=== PATIENT | female | born 1955 | race Caucasian/White ===

== ENCOUNTER 2018-03-15 15:07 | Outpatient (CLI) | payer OTHER | END 2018-03-15 15:08 | disposition home or self-care (01) | LOC: LABBT 15:07 | PROVIDERS: ATTEND Surgery | DX: Z01.818 Encounter for other preprocedural examination (principal); K64.8 Other hemorrhoids | CPT/HCPCS: 93005; 93010 ==

== ENCOUNTER 2018-03-23 09:37 | Day surgery (SDC) | payer OTHER ==
[2018-03-15 15:35] VITALS: BMI 26.4
[2018-03-23] MEDS ORDERED: cefOXitin 2 GM VIAL ONE (10:06)
[2018-03-23] MEDS ORDERED: Sodium Chloride 0.9% 100 ML ONE (10:07)
[2018-03-23] MEDS ORDERED: Ondansetron HCl/PF 4 MG/2 ML Vial ONE (10:36)
[2018-03-23] MEDS ORDERED: PROPOFOL 200 MG/20 ML VIAL ONE (10:36)
[2018-03-23] MEDS ORDERED: Glycopyrrolate 0.2 MG/ML 5 ML SYRINGE ONE (10:36)
[2018-03-23] MEDS ORDERED: Lidocaine 1% PF 5 ML VIAL ONE (10:36)
[2018-03-23] MEDS ORDERED: Dexamethasone 20 MG/5 ML VIAL ONE (10:36)
[2018-03-23] MEDS ORDERED: Fentanyl 250 MCG/5 ML VIAL ONE (11:39)
[2018-03-23] MEDS ORDERED: Bupivacaine/Epinephrine 0.25% 30 ML VIAL ONE (11:51)
[2018-03-23] MEDS ORDERED: Lidocaine 2% Jelly 5 ML TUBE ONE (11:51)
[2018-03-23] MEDS ORDERED: Morphine 4 MG/ML VIAL ONE (14:06)
--- NOTE | 2018-03-23 21:29 | OP ---
DATE OF PROCEDURE: 03/23/2018 PREOPERATIVE DIAGNOSIS: Internal and external hemorrhoid x2. POSTOPERATIVE DIAGNOSIS: Internal and external hemorrhoid x2. PROCEDURE: Internal and external hemorrhoidectomy with LigaSure. SURGEON: Damon Franco M.D. ANESTHESIA: General. ESTIMATED BLOOD LOSS: Minimal. COMPLICATIONS: None. SPECIMEN: Hemorrhoids. TECHNIQUE: The patient was taken to the operating room and placed supine on the table. After genera l anesthetic was obtained, she was placed in the lithotomy position. Her perineum was prepped and dr aped in a sterile fashion. She had left and right posterolateral hemorrhoids thus the mucosa was inc ised using cautery. The hemorrhoid was removed using LigaSure. Care was taken to avoid damage to th e sphincter muscle. No additional sutures were placed. There was no bleeding. Gelfoam and lidocain e jelly was packed in the anal canal. There was no anal canal mass. There was good sphincter tone. The patient was en route to recovery in stable condition. All instrument counts, needle counts, and lap counts were correct.
== END 2018-03-23 14:45 | disposition home or self-care (01) ==
LOC: SDC 09:37
PROVIDERS: ATTEND Surgery
PROC: 06LY3CC Occlusion of Hemorrhoidal Plexus with Extraluminal Device, Percutaneous Approach (ICD-10-PCS; principal; 2018-03-23)
DX: K64.4 Residual hemorrhoidal skin tags (principal); K64.8 Other hemorrhoids; Z79.82 Long term (current) use of aspirin; Z79.899 Other long term (current) drug therapy; Z88.2 Allergy status to sulfonamides; Z88.6 Allergy status to analgesic agent; Z88.8 Allergy status to other drugs, medicaments and biological substances
CPT/HCPCS: 88304; J0694; J1100; J2001; J2270; J2405; J2704; J3010; J7050

== ENCOUNTER 2019-08-29 06:33 | Outpatient (CLI) | payer OTHER, MEDICARE ==
[2019-08-29 13:48] LABS: #Basophils 0.1 thou/uL (0.0-0.2); #Eosinphils 0.2 thou/uL (0.0-0.7); #Lymphocytes 2.9 thou/uL (1.20-3.40); #Monocytes 0.6 thou/uL (0.11-0.59); #Neutrophils 5.5 thou/uL (1.40-6.50); %Basophils 0.6 % (0.0-1.0); %Eosinophils 2.1 % (0.0-10.0); %Lymphocytes 30.9 % (21.0-51.0); %Monocytes 6.8 % (0.0-10.0); %Neutrophils 59.5 % (42.0-75.0); Hemoglobin 13.9 g/dL (12.0-16.0); Mean Corpuscular Hemoglobin 28.2 pg (27.0-31.0); Mean Corpuscular Volume 88.2 fL (78.0-98.0); Mean Platelet Volume 7.2 fL (7.4-10.4); Platelet Count 288 thou/uL (130-400); RBC Distribution Width 12.7 % (11.5-14.5); Red Blood Cell (RBC) Count 4.92 mill/uL (4.20-5.40); White Blood Cell (WBC) Count 9.3 thou/uL (4.8-10.8)
[2019-08-29 13:52] LABS: INR-International Normal Ratio 0.9; Prothrombin Time 11.7 SEC (12.0-14.7)
[2019-08-29 14:06] LABS: Bilirubin Negative (Negative); Blood, Urine Negative (Negative); Clarity Clear (Clear); Glucose, Urine (Dipstick) Normal (Negative); Leukocyte Negative Leu/uL (Negative); Nitrite Negative (Negative); Protein, Urine (Dipstick) Negative (Neg-Trace); RBC/HPF 0-3 HPF (0-3); Squamous Epithelial None Seen HPF (0-3); Urobilinogen Normal mg/dL (Less than 2); WBC/HPF 0-3 HPF (0-3)
[2019-08-29 14:08] LABS: Bacteria/HPF 1+ HPF (None Seen)
[2019-08-29 14:17] LABS: Anion Gap 11 mmol/L (10-20); BUN (Urea Nitrogen) 16 mg/dL (9.8-20.1); Calc. Creatinine Clearance 0 mL/min (70-130); Calcium 9.9 mg/dL (7.8-10.44); Carbon Dioxide 28 mmol/L (23-31); Chloride 104 mmol/L (98-107); Estimated GFR-MDRD 87; Glucose 84 mg/dL (80-115); Potassium 3.8 mmol/L (3.5-5.1); Sodium 139 mmol/L (136-145)
--- NOTE | 2019-08-30 17:57 | EKG ---
Test Reason : Blood Pressure : / mmHG Vent. Rate : 072 BPM Atrial Rate : 072 BPM P-R Int : 156 ms QRS Dur : 088 ms QT Int : 380 ms P-R-T Axes : 062 051 032 degrees QTc Int : 416 ms Normal sinus rhythm Low voltage QRS Cannot rule out Anterior infarct (cited on or before 15-MAR-2018) Abnormal ECG When compared with ECG of 15-MAR-2018 16:10, No significant change was found Confirmed by Angela MEDINA ([id number]) on 08/30/2019 5:56:36 PM Referred By: NAZANIN Confirmed By:Angela MEDINA
== END 2019-08-29 06:34 | disposition home or self-care (01) ==
LOC: LABBT 06:33
PROVIDERS: ATTEND Orthopaedic Surgery
DX: Z01.818 Encounter for other preprocedural examination (principal); M17.12 Unilateral primary osteoarthritis, left knee
CPT/HCPCS: 80048; 81001; 85025; 85610; 93005; 93010

== ENCOUNTER 2019-08-29 13:15 | Inpatient (IN) | payer OTHER, MEDICARE ==
[2019-08-29 11:58] VITALS: BMI 29.2
[2019-09-02] MEDS ORDERED: Fentanyl 100 MCG/2 ML VIAL ONE ×4 (05:50→10:28)
[2019-09-02] MEDS ORDERED: Sodium Chloride 0.9% 100 ML ONE (05:54)
[2019-09-02] MEDS ORDERED: Tranexamic Acid 1,000 MG/10 ML VIAL ONE ×2 (05:54→09:25)
[2019-09-02] MEDS ORDERED: Midazolam HCl 2 mg/2 ml Vial ONE (06:21)
[2019-09-02] MEDS ORDERED: Bupivacaine PF 0.5% 30 ML VIAL ONE (06:28)
[2019-09-02] MEDS ORDERED: Acetaminophen 325 MG TAB PO PRN (07:31)
[2019-09-02] MEDS ORDERED: Zolpidem Tartrate 5 MG TAB PO PRN ×2 (07:31→08:12)
[2019-09-02] MEDS ORDERED: diphenhydrAMINE 25 MG CAP PO PRN (07:31)
[2019-09-02] MEDS ORDERED: HYDROcodone/Acetaminophen 10/325 mg Tablet PO PRN ×4 (07:31→08:12)
[2019-09-02] MEDS ORDERED: Ondansetron PF 4 MG/2 ML Vial IVP PRN ×2 (07:31→08:12)
[2019-09-02] MEDS ORDERED: Promethazine HCl 25 MG/ML VIAL IM PRN ×3 (07:31→08:12)
[2019-09-02] MEDS ORDERED: Tranexamic Acid 1,000 MG in Sodium Chloride 0.9% 100 ML IVPB SCH (07:45)
[2019-09-02] MEDS ORDERED: Vancomycin HCl 1 GM in Premix Bag 1 BAG IVPB SCH (07:45)
--- NOTE | 2019-09-02 08:00 | RAD ---
XR Knee Lt 2 View: 09/02/2019 5:55 AM CLINICAL INDICATION: Preoperative left knee radiograph COMPARISON: None. FINDINGS: Bones: No acute fracture is demonstrated. Joints: Severe osteoarthrosis of the left knee with mild varus malalignment. There is postprocedural change of an ACL reconstruction.. Soft Tissue: No acute abnormality.. IMPRESSION: Severe left knee osteoarthrosis. Postprocedural change of a prior ACL reconstruction. No acute fractu re or subluxation demonstrated.
[2019-09-02] MEDS ORDERED: Promethazine HCl 25 MG/ML VIAL SLOW IVP PRN (08:10)
[2019-09-02] MEDS ORDERED: Ondansetron HCl/PF 4 MG/2 ML Vial IVP PRN (08:10)
[2019-09-02] MEDS ORDERED: traMADol HCl 50 MG TAB PO PRN (08:12)
[2019-09-02] MEDS ORDERED: Ropivacaine HCl/PF 250 ML in Premix Bag 1 BAG NERVE BLCK SCH (08:12)
[2019-09-02] MEDS ORDERED: Fentanyl 100 MCG/2 ML VIAL SLOW IVP PRN (08:13)
[2019-09-02] MEDS ORDERED: Ketorolac Tromethamine 30 MG/ML VIAL ONE (09:50)
[2019-09-02] MEDS ORDERED: Ropivacaine 0.5% HCl/PF (150 MG/30 ML VIAL) ONE (10:45)
[2019-09-02] MEDS ORDERED: ePHEDrine/0.9% NaCl/PF SYRINGE 50 mg/10 ml ONE (10:45)
[2019-09-02] MEDS ORDERED: Dexamethasone 20 MG/5 ML VIAL ONE (10:45)
[2019-09-02] MEDS ORDERED: Ropivacaine 0.2% HCl/PF (40 MG/20 ML VIAL) ONE (10:45)
[2019-09-02] MEDS ORDERED: PROPOFOL 200 MG/20 ML VIAL ONE (10:45)
[2019-09-02] MEDS ORDERED: Ondansetron PF 4 MG/2 ML Vial ONE (10:45)
[2019-09-02] MEDS: Ketorolac Tromethamine 30 MG/ML VIAL IVP SCH ×3 (12:38→23:13)
[2019-09-02] MEDS: Sodium Chloride 0.9% 1,000 ML IV SCH ×2 (12:45→17:17)
[2019-09-02] MEDS: Aspirin 81 mg Enteric Coated Tablet PO SCH ×2 (12:50→19:55)
[2019-09-02] MEDS: Montelukast Sodium 10 mg Tablet PO SCH (12:50)
[2019-09-02] MEDS: Multivitamin W/ Minerals 1 TAB PO SCH (12:50)
[2019-09-02] MEDS: Senokot S 8.6-50 MG TAB PO SCH ×2 (12:50→19:55)
[2019-09-02] MEDS: Ferrous Gluconate 324 MG TAB PO SCH ×2 (12:50→19:55)
[2019-09-02] MEDS: Oxybutynin 5 MG TAB PO SCH (12:50)
[2019-09-02] MEDS: CEFAZOLIN 2 GM in Premix Bag 1 BAG IVPB SCH ×2 (14:40→21:10)
--- NOTE | 2019-09-02 14:46 | OP ---
DATE OF PROCEDURE: 09/02/2019 PREOPERATIVE DIAGNOSIS: Left knee osteoarthrosis, status post previous anterior cruciate ligament reconstruction. POSTOPERATIVE DIAGNOSIS: Left knee osteoarthrosis, status post previous anterior cruciate ligament reconstruction. PROCEDURES PERFORMED: 1. Left total knee replacement using [place] pinless navigation. 2. Hardware removal, left leg. FIRE OFFICIAL: Addi Salinas PA-C. COMPLICATIONS: None. ESTIMATED BLOOD LOSS: Minimal. ANESTHESIA: The patient had a general anesthetic as well as a preoperative block. IMPLANTS: To the left knee; we did place a Sylvia Triathlon total knee system , the femur with size 3 cruciate-retaining femur. We used a size 2 primary tibial baseplate. We used a 2 x 9 mm CS X3 tibial bearing and a symmetric 27 x 8 X3 patella. DISPOSITION: She did go to recovery room in stable condition. INDICATIONS: This 63-year-old female comes in for left knee replacement after failing nonoperative treatment. In the past, she had an ACL reconstruction performed and she had some hardware that has been bothering her on her astorga and she wishes for that also to be removed. PROCEDURE IN DETAIL: After all appropriate consent forms were explained and signed, the patient was taken back to the operating room and at this time was given general anesthetic. Once the level of anesthesia was appropriate, a well-padded tourniquet was placed on the left leg, and the leg was then prepped and draped in standard surgical fashion. The limb was exsanguinated and tourniquet taken up to 300 mmHg. Midline incision was made with a 10 blade down through the skin and subcutaneous tissue. Bovie electrocautery was used to coagulate any brisk venous bleeding. A new blade was used to make a medial parapatellar arthrotomy. Small subperiosteal release was performed medially and excess fat pad was removed. The knee was flexed up to gain access to the femur. The femur was navigated and distal femoral resection was made. Epicondylar access was used to align our sizing jig and this was pinned in place. We sized our femur to be a size 3 cruciate-retaining femur. 4:1 cutting block was applied and pinned. Anterior and posterior chamfer cuts were then made. We navigated out our proximal tibia and made our proximal tibial resection. Spreaders were used to remove any posterior osteophytes off the back of the femur as well as remaining meniscal tissue. A long alignment susan was then used to achieve correct rotation of our tibial baseplate and we used a size 2 primary tibial baseplate was chosen. This was pinned in place. We trialed the polyethylene and we used a 2 x 9 mm CS X3 tibial bearing polyethylene gave us full extension and good stability throughout range of motion. Two towel clips and a saw were used to cut our patella. Three lug nuts were drilled and a symmetric 27 x 8 X3 patella was trialed which sat nicely in the trochlear groove. We then drilled our femur and punched our tibia. All components were removed. The knee was thoroughly irrigated and dried. Cement was mixed into the cement gun on the back table. Components were then placed. The knee was held out in full extension until the cement had dried. All excess bone cement was removed. Multiple #2 Vicryl stitches as well as a Quill were used to close our extensor mechanism. 0 Quill followed by a running Monoderm was then used to close the skin. Surgicel glue was then used on the skin. Once this had dried, soft tissue dressing was applied to the limb, tourniquet was let down, and the toes pinked up nicely. The patient was then awakened and taken to the recovery room in stable condition. All counts were correct at the end of the case. The patient did receive preoperative IV antibiotics. The patient was injected with Marcaine for postoperative pain relief. As we were doing our approach, the tibial incision was taken down a little bit more distal than normal to gain access to the tibial hardware. This was easily found and the Ethibond sutures and tibial screw were removed without any complication. From this point on, we went onto perform a standard knee replacement. Job ID: [id number] [facility]
[2019-09-02] MEDS: Acetaminophen 325 MG TAB PO PRN (19:40)
[2019-09-02] MEDS: Loratadine 10 MG TAB PO SCH (19:55)
[2019-09-02] MEDS: traMADol HCl 50 MG TAB PO PRN (21:14)
[2019-09-03] MEDS: traMADol HCl 50 MG TAB PO PRN ×3 (03:26→18:34)
[2019-09-03] MEDS: Sodium Chloride 0.9% 1,000 ML IV SCH ×3 (03:30→23:59)
[2019-09-03] MEDS: Ketorolac Tromethamine 30 MG/ML VIAL IVP SCH ×3 (05:30→17:46)
[2019-09-03 05:45] LABS: Hemoglobin 10.6 g/dL (12.0-16.0); Mean Corpuscular HGB CONC 33.4 g/dL (32.0-36.0); Mean Corpuscular Hemoglobin 29.1 pg (27.0-31.0); Mean Corpuscular Volume 87.2 fL (78.0-98.0); Platelet Count 233 thou/uL (130-400); RBC Distribution Width 12.7 % (11.5-14.5); Red Blood Cell (RBC) Count 3.64 mill/uL (4.20-5.40); White Blood Cell (WBC) Count 11.4 thou/uL (4.8-10.8)
--- NOTE | 2019-09-03 07:06 | PDOC.HOSPP ---
- Subjective Encounter Date: 09/02/19 Encounter Time: 18:30 Subjective: Patient seen and examined for med mngt. No CP or SOB. Pain controlled. No new complaints. - Objective Vital Signs & Weight: Vital Signs (12 hours) Temp Pulse Resp BP Pulse Ox 09/03/19 03:14 98.7 F 77 16 123/72 96 09/02/19 23:16 98.3 F 69 16 118/70 95 09/02/19 20:25 95 09/02/19 19:44 98.7 F 91 16 130/68 95 Weight Weight 150 lb I&O: 09/02/19 09/03/19 09/04/19 06:59 06:59 06:59 Intake Total 1100 Output Total 2800 Balance -1700 Result Diagrams: 09/03/19 05:11 Additional Labs: Laboratory Tests 04/05/19 08/29/19 11:05 13:10 Creatinine 0.68 Cholesterol 246 H LDL Cholesterol, Calc 161 HDL Cholesterol 75 EKG Reviewed by me: Yes (SR) Hospitalist ROS - Review of Systems Cardiovascular: denies: chest pain, palpitations, orthopnea, paroxysmal noc. dyspnea, edema, light headedness, other Gastrointestinal: denies: nausea, vomiting, abdominal pain, diarrhea, constipation, melena, hematochezia, other - Medication Medications: Active Medications Generic Name Dose Route Start Last Admin Trade Name Freq PRN Reason Stop Dose Admin Acetaminophen 650 mg 09/02/19 08:14 09/02/19 19:40 Tylenol PO 650 mg Q6H PRN Administration Headache/Fever or Pain Aspirin 81 mg 09/02/19 09:00 09/02/19 19:55 Ecotrin PO 81 mg BID NURIA Administration Ferrous Gluconate 324 mg 09/02/19 09:00 09/02/19 19:55 Fergon PO 324 mg BID NURIA Administration Sodium Chloride 1,000 mls @ 100 mls/hr 09/02/19 07:45 09/03/19 03:30 Normal Saline 0.9% IV Not Given .Q10H NURIA Iron/Minerals/Multivitamins 1 tab 09/02/19 09:00 09/02/19 12:50 Theragran M PO Not Given DAILY NURIA Ketorolac Tromethamine 30 mg 09/02/19 12:00 09/03/19 05:30 Toradol IVP 09/04/19 06:01 30 mg Q6HR NURIA Administration Loratadine 10 mg 09/02/19 21:00 09/02/19 19:55 Claritin PO 10 mg HS NURIA Administration Montelukast Sodium 10 mg 09/02/19 09:00 09/02/19 12:50 Singulair PO Not Given QAM NURIA Oxybutynin Chloride 5 mg 09/02/19 09:00 09/02/19 12:50 Ditropan PO Not Given QAM NURIA Senna/Docusate Sodium 2 tab 09/02/19 09:00 09/02/19 19:55 Senokot S PO 2 tab BID NURIA Administration Tramadol HCl 100 mg 09/02/19 07:31 09/03/19 03:26 Ultram PO 100 mg Q6H PRN Administration Moderate Pain (4-6) Tramadol HCl 50 mg 09/02/19 08:12 09/02/19 15:34 Ultram PO 50 mg Q6H PRN Administration Mild Pain (1-3) - Exam General Appearance: NAD Heart: RRR, no gallops Respiratory: CTAB, no rales Gastrointestinal: soft, non-distended Extremities: no edema Hosp A/P - Plan DVT proph w/SCDs HTN HLD Hypothyroidism GERD CKD 2 PLAN: Cont Amlodipine Cont Levothyroxine Cont PPI Cont supportive care/PT DVT prophylaxis Full code. DPOA - spouse
[2019-09-03] MEDS ORDERED: Polyethylene Glycol 3350 17 GM Packet PO PRN (07:17)
[2019-09-03] MEDS: Senokot S 8.6-50 MG TAB PO SCH ×2 (08:29→19:46)
[2019-09-03] MEDS: Acetaminophen 325 MG TAB PO PRN (08:29)
[2019-09-03] MEDS: Aspirin 81 mg Enteric Coated Tablet PO SCH ×2 (08:29→19:46)
[2019-09-03] MEDS: Ferrous Gluconate 324 MG TAB PO SCH ×2 (08:30→19:46)
[2019-09-03] MEDS: Multivitamin W/ Minerals 1 TAB PO SCH (08:30)
[2019-09-03] MEDS: Montelukast Sodium 10 mg Tablet PO SCH (08:30)
[2019-09-03] MEDS: Oxybutynin 5 MG TAB PO SCH (08:30)
[2019-09-03] MEDS: Amlodipine 5 MG TAB PO SCH (08:30)
[2019-09-03] MEDS ORDERED: Prevnar 13-Val Conj/PF 0.5 ML SYRINGE IM ONE (13:15)
[2019-09-03] MEDS ORDERED: FLU VACC TS2019-20(65YR UP)/PF 180 MCG/0.5 ML SYRINGE IM ONE (13:15)
[2019-09-03] MEDS: Loratadine 10 MG TAB PO SCH (19:46)
[2019-09-04] MEDS: traMADol HCl 50 MG TAB PO PRN ×2 (03:43→10:46)
[2019-09-04] MEDS: Ketorolac Tromethamine 30 MG/ML VIAL IVP SCH ×2 (05:53)
[2019-09-04] MEDS ORDERED: Levothyroxine 150 MCG TAB PO SCH (06:00)
[2019-09-04 06:04] LABS: Hemoglobin 10.3 g/dL (12.0-16.0); Mean Corpuscular HGB CONC 33.6 g/dL (32.0-36.0); Mean Corpuscular Hemoglobin 29.4 pg (27.0-31.0); Mean Corpuscular Volume 87.5 fL (78.0-98.0); Mean Platelet Volume 6.9 fL (7.4-10.4); Platelet Count 227 thou/uL (130-400); RBC Distribution Width 12.8 % (11.5-14.5); Red Blood Cell (RBC) Count 3.51 mill/uL (4.20-5.40); White Blood Cell (WBC) Count 11.2 thou/uL (4.8-10.8)
--- NOTE | 2019-09-04 08:23 | PRG ---
DATE OF SERVICE: 09/04/2019 SUBJECTIVE: Rosmery is a 63-year-old female postop day 2 from left total knee arthroplasty. Pain is relatively well controlled. She otherwise has no complaints. OBJECTIVE: VITAL SIGNS: Temperature 98.7, pulse 85, respiratory rate 18, and blood pressure 153/82. NEUROLOGIC: She is alert and oriented to person, place, time, and situation, responsive and appropriate with the examiner. Grossly nonfocal and neurovascularly intact in both lower extremities. LABORATORY DATA: Hemoglobin and hematocrit are 10.3 and 30.7. IMPRESSION: A 63-year-old female postop day 2, left total knee arthroplasty, doing well. PLAN: Continue current care. Probable discharge home today. Job ID: [id number]
[2019-09-04] MEDS: Aspirin 81 mg Enteric Coated Tablet PO SCH (08:26)
[2019-09-04] MEDS: Montelukast Sodium 10 mg Tablet PO SCH (08:26)
[2019-09-04] MEDS: Ferrous Gluconate 324 MG TAB PO SCH (08:26)
[2019-09-04] MEDS: Oxybutynin 5 MG TAB PO SCH (08:26)
[2019-09-04] MEDS: Amlodipine 5 MG TAB PO SCH (08:27)
[2019-09-04] MEDS: Senokot S 8.6-50 MG TAB PO SCH (08:27)
[2019-09-04] MEDS: Multivitamin W/ Minerals 1 TAB PO SCH (08:27)
[2019-09-04] MEDS: Sodium Chloride 0.9% 1,000 ML IV SCH (08:38)
[2019-09-04 11:05] VITALS: BP 149/82; TEMP 98.3
== END 2019-09-04 14:48 | disposition home or self-care (01) | DRG 470 ==
LOC: SURG A 09-02 05:25 → SJJU 09-02 11:59
PROVIDERS: ADMIT Orthopaedic Surgery; ATTEND Orthopaedic Surgery
PROC: 0SRD0J9 Replacement of Left Knee Joint with Synthetic Substitute, Cemented, Open Approach (ICD-10-PCS; principal; 2019-09-02)
PROC: 0QPH04Z Removal of Internal Fixation Device from Left Tibia, Open Approach (ICD-10-PCS; 2019-09-02)
DX: M17.12 Unilateral primary osteoarthritis, left knee (principal); E03.9 Hypothyroidism, unspecified; I12.9 Hypertensive chronic kidney disease with stage 1 through stage 4 chronic kidney disease, or unspecified chronic kidney disease; N18.2 Chronic kidney disease, stage 2 (mild); E78.5 Hyperlipidemia, unspecified; K21.9 Gastro-esophageal reflux disease without esophagitis; Z88.5 Allergy status to narcotic agent; Z88.2 Allergy status to sulfonamides; Z88.8 Allergy status to other drugs, medicaments and biological substances; T84.9XXD Unspecified complication of internal orthopedic prosthetic device, implant and graft, subsequent encounter
CPT/HCPCS: 36415; 85027; 90471; 90670; C1713; C1776; G0009; J0690; J1100; J1885; J2250; J2405; J2704; J2795; J3010; J3370; J3490; S0020

== ENCOUNTER 2021-08-06 08:54 | Outpatient (CLI) | payer BC | END 2021-08-06 08:55 | disposition home or self-care (01) | LOC: BICMRI 08:54 | PROVIDERS: ATTEND Orthopaedic Surgery | DX: M75.101 Unspecified rotator cuff tear or rupture of right shoulder, not specified as traumatic (principal); M19.011 Primary osteoarthritis, right shoulder; M25.411 Effusion, right shoulder; M24.111 Other articular cartilage disorders, right shoulder ==

== ENCOUNTER 2021-09-07 13:33 | Outpatient (CLI) | payer BC ==
[2021-09-07 14:54] LABS: #Basophils 0.1 10x3/uL (0.0-0.2); #Eosinphils 0.2 10x3/uL (0.0-0.5); #Monocytes 0.5 10x3/uL (0.0-1.1); #Neutrophils 5.6 10x3/uL (1.5-8.4); %Basophils 0.6 % (0.0-2.0); %Eosinophils 2.3 % (0.0-6.0); %Lymphocytes 27.8 % (18.0-47.0); %Monocytes 5.9 % (0.0-10.0); %Neutrophils 63.1 % (40.0-75.0); Hemoglobin 13.7 g/dL (12.0-15.5); Mean Corpuscular Hemoglobin 28.2 pg (27.0-33.0); Mean Corpuscular Volume 88.1 fl (81.6-98.3); Mean Platelet Volume 9.3 fl (7.4-10.4); Platelet Count 329 10x3/uL (150-450); RBC Distribution Width 13.9 % (11.5-14.5); Red Blood Cell (RBC) Count 4.86 10x6/uL (3.90-5.03); White Blood Cell (WBC) Count 8.9 10x3/uL (3.5-10.5)
[2021-09-07 15:29] LABS: Anion Gap 16 mmol/L (10-20); BUN (Urea Nitrogen) 16 mg/dL (9.8-20.1); Calc. Creatinine Clearance 0 mL/min (70-130); Carbon Dioxide 24 mmol/L (23-31); Chloride 105 mmol/L (98-107); Potassium 3.9 mmol/L (3.5-5.1); Sodium 141 mmol/L (136-145)
[2021-09-07 15:30] LABS: Calcium 9.5 mg/dL (7.8-10.44); Glucose 93 mg/dL (80-115)
[2021-09-08 00:42] LABS: SARS-CoV-2 PCR by NAA Not Detected (NotDetected)
== END 2021-09-07 13:34 | disposition home or self-care (01) ==
LOC: LABBT 13:33
PROVIDERS: ATTEND Orthopaedic Surgery
DX: Z01.818 Encounter for other preprocedural examination (principal); M75.101 Unspecified rotator cuff tear or rupture of right shoulder, not specified as traumatic; Z20.822 Contact with and (suspected) exposure to COVID-19
CPT/HCPCS: 71046; 80048; 85025; 93005; 93010; U0003; U0005

== ENCOUNTER 2021-09-10 07:39 | Day surgery (SDC) | payer BC ==
[2021-09-08 12:10] VITALS: BMI 29.2
[2021-09-10] MEDS ORDERED: ceFAZolin 2 GM/DEX 5% 100 ML BAG ONE (09:05)
[2021-09-10] MEDS ORDERED: Vancomycin 1 GM/200 ML BAG ONE (09:32)
[2021-09-10] MEDS ORDERED: Fentanyl 100 MCG/2 ML VIAL ONE ×2 (09:38→10:03)
[2021-09-10] MEDS ORDERED: Midazolam HCl 2 mg/2 ml Vial ONE (09:38)
[2021-09-10] MEDS ORDERED: Ropivacaine 0.2% 550 ML 550 ML NERVE BLCK SCH (09:45)
[2021-09-10] MEDS ORDERED: traMADol HCl 50 MG TAB PO PRN ×2 (09:45)
[2021-09-10] MEDS ORDERED: Zolpidem Tartrate 5 MG TAB PO PRN (09:45)
[2021-09-10] MEDS ORDERED: Promethazine HCl 25 MG/ML VIAL IM PRN (09:45)
[2021-09-10] MEDS ORDERED: Ondansetron PF 4 MG/2 ML Vial IVP PRN (09:45)
[2021-09-10] MEDS ORDERED: Ropivacaine 2% HCl/PF (20 MG/10 ML VIAL) ONE (09:48)
[2021-09-10] MEDS ORDERED: Lidocaine 2% Jelly 5 ML TUBE ONE (10:12)
[2021-09-10] MEDS ORDERED: Lidocaine 1% PF 5 ML VIAL ONE (10:24)
[2021-09-10] MEDS ORDERED: Rocuronium Bromide 10 MG/ML (10ML VIAL) ONE (10:24)
[2021-09-10] MEDS ORDERED: PROPOFOL 200 MG/20 ML VIAL ONE (10:24)
[2021-09-10] MEDS ORDERED: ePHEDrine 50 MG/ML VIAL ONE (10:24)
[2021-09-10] MEDS ORDERED: Dexamethasone 20 MG/5 ML VIAL ONE (10:24)
[2021-09-10] MEDS ORDERED: Lidocaine 1% w/Epinephrine 1:100K 20 ML VIAL ONE (10:52)
[2021-09-10] MEDS ORDERED: SUGAMMADEX SODIUM 200 MG/2 ML VIAL ONE (11:26)
== END 2021-09-10 14:13 | disposition home or self-care (01) ==
LOC: SDC 07:39
PROVIDERS: ATTEND Orthopaedic Surgery
PROC: 0LS30ZZ Reposition Right Upper Arm Tendon, Open Approach (ICD-10-PCS; principal; 2021-09-10)
PROC: 0RHJ04Z Insertion of Internal Fixation Device into Right Shoulder Joint, Open Approach (ICD-10-PCS; principal; 2021-09-10)
PROC: 3E0T3BZ Introduction of Anesthetic Agent into Peripheral Nerves and Plexi, Percutaneous Approach (ICD-10-PCS; principal; 2021-09-10)
PROC: 0RBJ4ZZ Excision of Right Shoulder Joint, Percutaneous Endoscopic Approach (ICD-10-PCS; principal; 2021-09-10)
DX: M75.111 Incomplete rotator cuff tear or rupture of right shoulder, not specified as traumatic (principal); S43.491A Other sprain of right shoulder joint, initial encounter; S46.111A Strain of muscle, fascia and tendon of long head of biceps, right arm, initial encounter; M25.311 Other instability, right shoulder; M24.011 Loose body in right shoulder; M19.011 Primary osteoarthritis, right shoulder; E89.0 Postprocedural hypothyroidism; Z79.82 Long term (current) use of aspirin; Z79.899 Other long term (current) drug therapy; Z88.2 Allergy status to sulfonamides; Z88.5 Allergy status to narcotic agent; Z88.6 Allergy status to analgesic agent; Z88.8 Allergy status to other drugs, medicaments and biological substances
CPT/HCPCS: A4306; C1713; J1100; J2250; J2704; J2795; J3010; J3370; J3490

== ENCOUNTER 2022-04-22 11:02 | Outpatient (CLI) | payer BC | END 2022-04-22 11:03 | disposition home or self-care (01) | LOC: BICMAMMO 11:02 | PROVIDERS: ATTEND Family Medicine | DX: Z12.31 Encounter for screening mammogram for malignant neoplasm of breast (principal) | CPT/HCPCS: 77063; 77067 ==

== ENCOUNTER 2022-09-30 08:48 | Outpatient (CLI) | payer BC ==
[2022-09-30] MEDS ORDERED: Iopamidol 370 76% 100 ML VIAL ONE (10:16)
== END 2022-09-30 08:49 | disposition home or self-care (01) ==
LOC: CT 08:48
PROVIDERS: ATTEND Family Medicine
DX: R10.32 Left lower quadrant pain (principal); K57.30 Diverticulosis of large intestine without perforation or abscess without bleeding
CPT/HCPCS: 74177; 82565

== ENCOUNTER 2023-11-17 09:43 | Outpatient (CLI) | payer BC | END 2023-11-17 09:44 | disposition home or self-care (01) | LOC: BICMAMMO 09:43 | PROVIDERS: ATTEND Family Medicine | DX: Z12.31 Encounter for screening mammogram for malignant neoplasm of breast (principal) | CPT/HCPCS: 77063; 77067 ==

== ENCOUNTER 2025-07-18 12:23 | Outpatient (CLI) | payer BC | END 2025-07-18 12:24 | disposition home or self-care (01) | LOC: BICMAMMO 12:23 | PROVIDERS: ATTEND Family Medicine | DX: Z78.0 Asymptomatic menopausal state (principal); M85.852 Other specified disorders of bone density and structure, left thigh | CPT/HCPCS: 77080 ==